=== PATIENT | male | born 1970 | race Caucasian/White ===

== ENCOUNTER 2024-12-11 14:47 | Emergency (ER) | payer BC, SELFPAY ==
[2024-12-11 15:07] VITALS: BP 151/87; PULSE 80; RESP 18; TEMP 36.4; O2SAT 99
--- NOTE | 2024-12-11 15:22 | CRLHL7_ITS ---
For Patients: As a result of the Century Cures Act, medical imaging exams and procedure reports are released immediately into your electronic medical record. You may view this report before your referring provider. If you have questions, please contact your health care provider. INDICATION: Right upper extremity pain and swelling. TECHNIQUE: Ultrasound venous duplex upper right extremity. Compression venous exam was performed using smith-scale, color Doppler, and spectral Doppler imaging. COMPARISON: None. FINDINGS: Deep veins: The visualized right internal jugular, subclavian, brachial, and axillary veins are fully compressible, demonstrate normal color flow, and normal response to mechanical augmentation. The Duplex Doppler waveforms are normal in appearance. Superficial veins: Limited evaluation of the right mid cephalic vein due to caliber of the vessel. Within the limitations, the visualized cephalic, brachial and basilic veins are unremarkable. Soft tissue: Heterogeneous lobulated lesion is identified in the area of pain in the anterior forearm. The lesion measures approximately 2.7 x 1.4 x 4.7 centimeters. Possible small-vessel coursing through the lesion is noted. IMPRESSION: Heterogeneous lobulated lesion at the area of interest may represent a hematoma. Muscular rupture and retraction would also be a possibility. Correlate with history and physical exam. Dictated by Yuli Rodriguez MD @ 12/11/2024 8:05:28 PM (Electronically Signed)
--- NOTE | 2024-12-11 15:22 | CRLHL7_ITS ---
For Patients: As a result of the Cures Act, medical imaging exams and procedure reports are released immediately into your electronic medical record. You may view this report before your referring provider. If you have questions, please contact your health care provider. Indication: Injury Technique: Three views right wrist Comparison: None Findings/Impression: Bones: Alignment is normal. No fractures or bone lesions. Joint spaces: Unremarkable. Soft tissues: Unremarkable. Dictated by Erik Bowen MD @ 12/11/2024 3:42:51 PM (Electronically Signed)
--- NOTE | 2024-12-11 15:24 | ED.GENADULT ---
HPI - General Adult General Chief complaint: Extremity Pain/Injury, Upper Stated complaint: left wrist pain Time Seen by Provider: 12/11/24 15:15 Source: patient Mode of arrival: ambulatory Limitations: no limitations History of Present Illness HPI narrative: 54-year-old male with increased right dorsal proximal wrist pain significantly worse this morning but has been ongoing for about the past 2 and half weeks. Patient reports that he was chopping wood a few days after [place] which is not an activity that he does often. Couple of days later, he noticed some soreness and tenderness in this area of the wrist but assumed it was activity related. No redness or swelling at that time. He reports that last week, he went to open the heavy steel door when he felt a snap in the wrist and had bruising. 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 Recommended rest, ice, conservative management. He said he woke this morning with increased swelling and redness with tenderness to the area in question on the proximal dorsal wrist/distal forearm. No history of DVT or PE. Not anticoagulated. Hurts to flex the hand and wrist, no difficulty with extension abduction or adduction of the wrist. No numbness or tingling. No difficulty moving elbow, shoulder or neck. No prior history of similar symptoms. Left-side unaffected. Past medical history benign per his report. Allergy to shellfish. Only home medication is low-dose Flomax. Nonsmoker. ROS notable for the musculoskeletal symptoms as above only, otherwise denies times 12 systems. Related Data Home Medications ?Medication ?Instructions ?Recorded ?Confirmed tamsulosin 0.4 mg capsule 0.4 mg PO DAILY 12/11/24 12/11/24 Allergies Allergy/AdvReac Type Severity Reaction Status Date / Time shellfish derived Allergy Severe Hives Verified 12/11/24 15:12 [facility] Social History Smoking Status: Never smoker How often do you have a drink containing alcohol: 2-4 times a month AUDIT-C Alcohol total score: 2 Non-prescribed substance use: denies use Exam Const: Vital Signs, click to edit/add: Vital Signs - 24 hr 12/11/24 15:07 Temperature 97.6 F Pulse Rate [Pulse Oximeter] 80 Respiratory Rate 18 Blood Pressure [Le ft Upper Arm] 151/87 H Pulse Oximetry 99 Oxygen Delivery Me thod Room Air Documenting provider has reviewed patient's vital signs: yes Common normals: no apparent distress General appearance: cooperative, comfortable and well kempt HENMT: Common normals: normocephalic and moist oral mucous membranes Head and scalp: normocephalic Eye: General eye: normal appearance of both eyes Resp: Common normals: normal respiratory effort and no use of accessory muscles Effort & inspection: able to speak in complete sentences Cardio: Other: Regular rate and rhythm palpated through right radial pulse. Normal capillary refill in all fingers Extremity: Other: Left wrist and hand grossly normal with normal movement. Right elbow in all fingers with normal range of motion, no tenderness, deformity or swelling. The right wrist does have swelling and signs of bruising with what appears to be a good size subcutaneous hematoma on the proximal right dorsal wrist/distal right forearm. Mildly tender to palpation, mildly warm. Good pulses. No broken skin. Tendon seem intact with normal flexion, extension and movement of all fingers. Pain is increased with active flexion, less so with passive flexion on exam. Neuro: Common normals: moves all extremities Psych: Common normals: speech normal Appearance: well kempt Attitude: engaged Speech: normal speech Mood and affect: euthymic mood Insight: insight good Judgement: judgment good Skin: Common normals: no rashes or lesions noted General skin exam: no rashes or lesions noted Course Course ED Course: 54-year-old male with wrist pain. Differential diagnosis including gout, occult fracture, tendinitis, DVT, superficial venous thrombosis, sprain, amongst others. Because of the duration, I recommend a few basic labs to look for gout, inflammatory markers, CBC, platelet count. Venous ultrasound and x-ray recommended. Vital Signs Vital signs: Initial Vital Signs Temperature 97.6 F 12/11/24 15:07 Temperature Source Temporal Artery Scan 12/11/24 15:07 Pulse Rate 80 12/11/24 15:07 Respiratory Rate 18 12/11/24 15:07 Blood Pressure 151/87 H 12/11/24 15:07 Blood Pressure Mean 108 H 12/11/24 15:07 Blood Pressure Position Sitting 12/11/24 15:07 Pulse Oximetry 99 12/11/24 15:07 Oxygen Delivery Method Room Air 12/11/24 15:07 Vital Signs Temperature 97.6 F 12/11/24 15:07 Pulse Rate 80 12/11/24 15:07 Respiratory Rate 18 12/11/24 15:07 Blood Pressure 151/87 H 12/11/24 15:07 Pulse Oximetry 99 12/11/24 15:07 Oxygen Delivery Method Room Air 12/11/24 15:07 Temperature 97.6 F 12/11/24 15:07 Pulse Rate 80 12/11/24 15:07 Respiratory Rate 18 12/11/24 15:07 Blood Pressure 151/87 H 12/11/24 15:07 Pulse Oximetry 99 12/11/24 15:07 Oxygen Delivery Method Room Air 12/11/24 15:07 Medical Decision Making Lab Data Lab results reviewed: Yes I reviewed the patient's lab results Lab results narrative: Labs all reassuring. No elevation of inflammatory markers, uric acid, white count. Labs: Lab Results 12/11/24 Range/Units 15:44 WBC 6.60 (4.50-11.00) K/uL RBC 4.93 (4.30-5.90) m/uL Hgb 14.7 (13.5-17.5) gm/dL Hct 41.5 (37.0-53.0) % MCV 84 (80-100) fL MCH 30 (26-34) pg MCHC 35 (32-36) gm/dL RDW Coeff of Queenie 11.6 (11.5-15.5) % Plt Count 192 (140-440) K/uL Neut % (Auto) 62.4 (42.0-72.0) % Lymph % (Auto) 26.8 (20-44) % Benton % (Auto) 7.3 (0.0-11.0) % Eos % (Auto) 2.3 (0.0-7.0) % Baso % (Auto) 0.3 (0.0-3.0) % Neut # (Auto) 4.12 (1.7-7.0) K/uL Lymph # (Auto) 1.77 (0.90-2.90) K/uL Benton # (Auto) 0.50 (0.00-0.90) K/UL Eos # (Auto) 0.15 (0.00-0.50) K/uL Baso # (Auto) 0.02 (0.00-0.30) K/uL Abs Immat Gran (auto) 0.06 (0.00-0.30) K/uL Imm/Tot Granulo (auto) 0.9 % INR 0.95 (0.91-1.10) Sodium 138 (135-149) mmol/L Potassium 3.9 (3.6-5.1) mmol/L Chloride 106 (96-114) mmol/L Carbon Dioxide 23 (20-32) mmol/L Anion Gap 9 (7-15) mEq/L BUN 13 (7-30) mg/dL Creatinine 0.8 (0.5-1.5) mg/dL Estimated GFR 104 ml/min Glucose 89 (60-115) mg/dL Uric Acid 5.2 (2.2-8.4) mg/dL Calcium 8.9 (8.4-10.6) mg/dL C-Reactive Protein < 0.5 L (0.5-1.0) mg/dL Imaging Data Right wrist x-ray: Attestation: I have reviewed the pertinent imaging results. My impression: No fracture. Minimal soft tissue swelling. Radiologist's impression: Findings/Impression: Bones: Alignment is normal. No fractures or bone lesions. Joint spaces: Unremarkable. Soft tissues: Unremarkable. Dictated by Erik Bowen MD @ 12/11/2024 3:42:51 PM Ultrasound right upper extremity: Attestation: I have reviewed the pertinent imaging results. My impression: No evidence of DVT, soft tissue heterogenicity consistent with hematoma Note that exam correlates with hematoma. Radiologist's impression: IMPRESSION: Heterogeneous lobulated lesion at the area of interest may represent a hematoma. Muscular rupture and retraction would also be a possibility. Correlate with history and physical exam. Dictated by Yuli Rodriguez MD @ 12/11/2024 8:05:28 PM Discharge Plan Discharge Clinical Impression: Hematoma of right wrist Patient Disposition: Home, Self-Care Condition: Stable Instructions: Hematoma (ED) Additional Instructions: As we discussed, there are no signs of infection, gout, fracture or blood clot on exam today. We you do have a signs of a hematoma which is a collection of blood underneath the skin. This can be very irritating to the tendons and surrounding tissues. This most likely happen from a small ruptured vein near the surface of the skin that caused some bleeding. This probably got initially irritated with the chopping of the wood that you had and then popped and in convenient time, causing the bleeding and in flow may auguste right now. Your lab studies do not suggest that this has become infected. I think antibiotics are unlikely to be helpful. When you get inflammation in these hematomas, it does tend to take about a month resolved. I would recommend that you use an anti-inflammatory medicine like Aleve 1 pill 2 times daily for the next 2-3 weeks. It is okay to continue use of the wrist but it will be slightly tender. You will not do more long-term damage by continuing to use it. If you continue to have problems after month, I would recommend follow-up with an orthopedic provider to the more closely at the tendons and determine if any further advanced imaging or treatment is needed. Most of the time these minor injuries heal without complication and more information does not necessarily change the course of healing. Some mild numbness and tingling in the fingers can be common with this as the hematoma will press on the sensory nerves. Any difficulty moving the fingers, stroke-like symptoms or significant redness or streaking up the arm would warrant repeat evaluation. Activity Level: Activity as Tolerated Discharge Diet: Regular Prescriptions: No Action tamsulosin 0.4 mg capsule 0.4 mg PO DAILY Follow Up/Referrals: Anam Briones MD [Primary Care Provider] - Stand Alone Forms: [place] [employer] Info Instructions
--- OUTSIDE RECORDS SUMMARY | 2024-12-11 15:35 | XMS_ITS | Clinical Summary ---
Author Organization [facility] Address [place], [place] [address] Care Team Providers Care Door Tender Name Role Phone Anam Briones MD Primary Care Provider [phone] Allergies Active Allergy Reactions Criticality Noted Date Comments Shellfish Derived Hives,Itching,Rash 10/16/2017 Medications tamsulosin (FLOMAX) 0.4 mg capsuleIndicatio ns:BPH without urinary obstruction Take 1 Capsule (0.4 mg) by mouth once daily after a meal. 90 Capsule 3 06/19/2024 Active Active Problems Problem Noted Date Diagnosed Date BPH without urinary obstruction 03/24/2021 Sensorineural hearing loss, bilateral 12/08/2020 Adenomatous colon polyp 05/19/2019 Overview (03/24/2024): Colonoscopy 04/2019 polyp, repeat in 5 years Colonoscopy 02/2024 normal, repeat in 7 years Encounters Date Type Department Care Team Description 12/11/2024 2:05 PM DIRECTOR BUSINESS DEVELOPMENT Office Visit [facility] [address] [place] [address] Halie Bajwa PA Wrist Pain/problem (Right wrist pain/Started over [place] was achy had been chopping wood/Then went back to work opened a door and had shooting pain up his arm arm turned black and blue) 12/11/2024 Travel from Last 3 Months Immunizations Name Administration Dates Next Due AMB INFLUENZA, IIV4 (AGE=>6M OS) MDV (Flu Clinic Only) 08/17/2020 COVID-19 vaccine (Moderna 100mcg/0.5mL) PF, MDV 09/26/2023 Hepatitis B (Adult) 05/25/2008,01/12/2008,2006 Influenza Virus, Unspecified 08/19/2018 Influenza, IIV3 (Age 6-35 mos) 08/31/2009 Influenza, IIV3 (Age >=3 years) 08/19/20 15,08/13/2014,08/14/2013,2011,08/17/2011,09/22/2010,10/27/2003 Influenza, IIV4 (=>6mos) MDV 08/30/2021,09/01/20 19,08/16/2017 Influenza, Injectable, Mdck, Quadrivalent, W/preservative 08/20/2023,08/22/2022 Tdap 09/06/2015,06/07/2011 Zoster (Shingrix-RZV, recombinant) 08/16/2022, Family History Medical History Relation Name Comments Diabetes type II Father Cancer-prostate Maternal Grandfather Cancer-prostate Maternal Uncle No Known Problems Mother Diabetes Paternal Grandfather Relation Name Status Comments Father Maternal Grandfather Maternal Uncle Mother Paternal Grandfather Social History Tobacco Use Types Packs/Day Years Used Date Smoking Tobacco: Never Smokeless Tobacco: Never Tobacco Cessation:Counseling Given: Yes Alcohol Use Standard Drinks/Week Comments Yes 2 (1 standard drink = 0.6 oz pur e alcohol) occasionally PHQ-2 Answer Date Recorded PHQ-2 TOTAL SCORE 0 06/19/2024 Social Connections Answer Date Recorded Do you often feel lonely or isolated from those around you? 0 12/11/2024 Financial Resource Strain Answer Date R ecorded Difficulty of Paying Living Expenses 3 12/11/2024 Difficulty of Paying Living Expenses Not on file 12/11/2024 Food Insecurity Answer Date Recorded Do you worry your food will run out before you are able to buy more? 1 12/11/2024 Transportation Needs Answer Date Record ed Does lack of transportation keep you from medica l appointments? 1 12/11/2024 Does lack of transportation keep you from work, meetings or getting things that you need? 1 12/11/2024 Housing Stability Answer Date Recorded What is your housing situation today? 1 12/11/2024 Utilities Answer Date Recorded Do you have trouble paying f or utilities (for example, heat, electricity, water, phone)? 1 12/11/2024 Sex and Gender Information Value Date Recorded Sex Assigned at Not on file Legal Sex Male 5:51 AM DIRECTOR BUSINESS DEVELOPMENT Gender Identity Not on file Sexual Orientation Not on file Obstetrics History Last Filed Vital Signs Vital Sign Reading Time Taken Comments Blood Pressure 136/89 12/11/2024 1:57 PM DIRECTOR BUSINESS DEVELOPMENT Pulse 70 12/11/2024 1:57 PM DIRECTOR BUSINESS DEVELOPMENT Temperature 36.2 C (97.1 F) 03/24/2024 1:00 PM CDT Respiratory Rate 12 03/24/2024 2:05 PM CDT Oxygen Saturation 100% 12/11/2024 1: 57 PM DIRECTOR BUSINESS DEVELOPMENT Inhaled Oxygen Concentration - - Weight 96.1 kg (211 lb 14.4 oz) 12/11/2024 1:57 PM DIRECTOR BUSINESS DEVELOPMENT Height 180.7 cm (5' 11.14) 06/19/2024 9:53 AM C DT Body Mass Index 29.44 06/19/2024 9:53 AM CDT Plan of Treatment Health Maintenance Due Date Last Done Comments Pneumococcal series for age 50+ (1 of 1 - PCV) 2018 COVID-19 vaccine series ( season) 2024 09/26/2023, 09/26/2023, 06/07/2022, Additional history exists Influenza for age 50-64 07/26/2024 08/20/20 23, 08/22/2022, 08/30/2021, Additional history exists BMI (ht and wt on same day) for age 18+ 06/19/2025 06/19/2024, 02/18/2024, 07/19/2023, Additional history exists Depression screening for age 12+ 06/19/2025 06/19/2024, 07/19/2023, 07/10/2022, Additional history exists Tetanus booster 09/06/2025 09/06/2015, 06/07/2011 Lipids for age 45-75 06/19/2029 06/19/2024, 07/19/2023, 07/10/2022, Additional history exists Colonoscopy through age 75 03/24/203103/24, 03/24/2024, 03/24/2024, Additional history exists Tdap Completed 09/06/2015, 06/07/2011 Hepatitis C screening for ag e 18-79 Completed 07/10/2022 Zoster (shingles) series for age 50+ Completed 08/16/2022, 05/17/2022 HIV for age 15-65 Completed 07/19/2023 Procedures Procedure Name Priority Date/Time Associated Diagnosis Comments LIPID PANEL Routine 06/19/2024 10:33 AM CDT Screening, lipid COLONOSCOPY SCREENING Routine 03/24/2024 12:49 PM CDT History of colon polyps LC HIV-1/O/2, 4TH GENERATION Routine 07/19/2023 4:40 PM CDT Screening for HIV (human immunodeficiency virus) ANTI HCV Routine 07/10/2022 4:30 PM CDT Need for hepatitis C screening test from Last 3 Months or Most Recently Relevant to Health Maintenance Results * LIPID PANEL (06/19/2024 10:33 AM CDT) Pathologist [facility] CHOLESTEROL,TOTAL 167 100 - 199 mg/dL 06/19/2024 7:54 PM CDT [facility] Comment: Cholesterol, Total Reference Ranges Desirable <200 mg/dL Borderline 200-239 mg/dL High >=240 mg/dL TRIGLYCERIDES 83 <150 mg/dL 06/19/2024 7:54 PM CDT [facility] HDL CHOLESTEROL 56 >40 mg/dL 7:54 PM CDT [facility] NON-HDL CHOLESTEROL 111 <145 mg/dl 06/19/2024 7:54 PM CDT [facility] CHOL/HDL RATIO 2.98 <4.50 06/19/2024 7:54 PM CDT [facility] LDL CHOLESTEROL 94 <=130 mg/dL 06/19/2024 7:54 PM CDT [facility] VLDL CHOLESTEROL 17 <=30 mg/dL 06/19/2024 7:54 PM CDT [facility] PROVIDER ORDERED STATUS RANDOM 06/19/2024 7:54 PM CDT [facility] Blood BLOOD SPECIMEN / Unknown Venipuncture / Unknown 06/19/2024 10:33 AM CDT 06/19/2024 10:35 AM CDT us Anam Briones MD CHEMISTRY Final Resu lt [facility] [address] [address], * COLONOSCOPY (03/24/2024 12:53 PM CDT) 03/24/2024 12:5 3 PM CDT Narrative Transcriptions Jacoby Tracy MD - 03/24/2024 1:50 PM CDT Patient Name: Florentin Medina Procedure Date: 03/24/2024 Gender: Male Date of : 1970 Admit Type: Outpatient Procedure: Colonoscopy Proceduralist: Jacoby Tracy MD , Rayna Shelton (Nurse), Elizabeth Mistry (Nurse) Referring MD: Anam Briones Indications/Pre-Op Diagnosis: High risk colon cancer surveillance:Personal history of adenoma less than 10 mm in size, Last colonoscopy: April 2019 Medications: Fentanyl 100 micrograms IV, Midazolam 4 mgIV, The level of sedation administered wasmoderate Procedure Description: The patient had risks, benefits and alternatives explained to andgave informed consent. The patient had a stable cardiopulmonary status and judged an adequate candidate for conscious sedation. The endoscope -[id number] was passed through the anus andadvanced to the cecum, identified by appendiceal orifice and ileocecal valve.The colonoscopy was performed without difficulty. The patient toleratedthe procedure well. The quality of the bowel preparation was good. The ileocecal valve, appendiceal orifice, and rectum were photographed. Complications: No immediate complications. Estimated Blood Loss & Specimen: Estimated blood loss: none. Specimen collected - None Findings: The perianal and digital rectal examinations were normal. The entire examined colon appeared normal. Impressions/Post-Op Diagnosis: - The entire examined colon is normal. - No specimens collected. Recommendation: - Patient has a contact number available for emergencies. The signsand symptoms of potential delayed complications were discussed with the patient. Return to normal activities tomorrow. Written discharge instructions were provided to the patient. - Resume previous diet. - Continue present medications. - Repeat colonoscopy in 7 years for surveillance. Moderate Sedation: A time out was performed before the procedure. Moderate (conscious) sedation was administered by the endoscopy nurse and supervised bythe endoscopist. The following parameters were monitored: oxygensaturation, heart rate, blood pressure, EKG, CO2, respiratory rate, adequacy of pulmonary ventilation and reponse to care. Please refer to the patient's medical record flowsheets and nursing notes for moderate sedation details. Total physician intraservice time was 14 minutes. Jacoby Tracy MD 03/24/2024 1:50:31 PM This report has been signed electronically. Note Initiated On: 03/24/2024 12:53 PM Procedure Code(s): --- Professional --- 06040, Colonoscopy, flexible; diagnostic, including collection of specimen(s) bybrushing or washing, when performed (separateprocedure) Diagnosis Code(s): --- Professional --- Z86.010, Personal history of colonicpolyps CPT copyright 2022 [employer]. All rights reserved. The codes documented in this report are preliminary and upon second baker reviewmay be revised to meet current compliance requirements. Scope In: 1:29:57 PM Scope Withdrawal Time 0 hours 6 minutes 16 seconds Scope Out: 1:41:30 PM Jacoby Tracy MD PROCEDURE ORD Final Res ult * LC HIV-1/O/2, 4TH GENERATION (07/19/2023 4:40 PM CDT) HIV Scr 4th Gen Non Reactive Non Reactive 07/24/2023 10:06 PM CDT [facility] Comment: HIV Negative HIV-1/HIV-2 antibodies and HIV-1 p24 antigen were NOT detected. There is no laboratory evidence of HIV infection. Blood BLOOD SPECIMEN / Unknown Venipuncture / Unknown 07/19/2023 4:40 PM CDT 07/19/2023 4:41 PM CDT Narrative [facility] - 07/24/2023 10:06 PM CDT Performed at: [address] [place] [address] [id number] Operations Mgr: Javi Lo MD, Phone: [phone] us Anam Briones MD LABORATORY Final Resu lt [facility]) [address] [place] [id number], * ANTI HCV (07/10/2022 4:30 PM CDT) Pathologist [facility] HEPATITIS C ANTIBODY Non-React alan Non-React alan 07/11/2022 6:03 PM CDT [facility] Comment:Antibodies to HCV no t detected; does not exclude the possibility of exposure to HCV. Blood BLOOD SPECIMEN / Unknown Venipuncture / Unknown 07/10/2022 4:30 PM CDT 07/10/2022 4:31 PM CDT Anam Briones MD SEND OUTS [facility] [address] [place] [address], [place] from Last 3 Months or Most Recently Relevant to Health Maintenance Insurance [phone] (Work) [address] [facility] [id number] [facility] [employer] Advance Directives * Full Code (Latest Code Status on File) Date Activated Date Inactivated Comments 10/18/2015 8:14 AM 10/19/2015 2:29 AM Care Teams Door Tender Relationship Specialty Start Date End Date Anam Briones MD [address] [place] [address] PCP - General Family Practice 10/17/15
[2024-12-11 15:53] LABS: Basophils Absolute Auto 0.02 K/uL (0.00-0.30); Basophils Percent Auto 0.3 % (0.0-3.0); Eosinophils Absolute Auto 0.15 K/uL (0.00-0.50); Eosinophils Percent Auto 2.3 % (0.0-7.0); Hematocrit 41.5 % (37.0-53.0); Hemoglobin* 14.7 gm/dL (13.5-17.5); Immature Granulocytes Abs Auto 0.06 K/uL (0.00-0.30); Immature Granulocytes Pct Auto 0.9 %; Lymphocytes Absolute Auto 1.77 K/uL (0.90-2.90); Lymphocytes Percent Auto 26.8 % (20-44); Mean Corpuscular HGB Conc 35 gm/dL (32-36); Mean Corpuscular Hemoglobin 30 pg (26-34); Mean Corpuscular Volume 84 fL (80-100); Monocytes Percent Auto 7.3 % (0.0-11.0); Neutrophils Absolute Auto 4.12 K/uL (1.7-7.0); Neutrophils Percent Auto 62.4 % (42.0-72.0); Platelet Count* 192 K/uL (140-440); RDW Coefficient of Variation % 11.6 % (11.5-15.5); Red Blood Count 4.93 m/uL (4.30-5.90)
[2024-12-11 16:02] LABS: Chloride* 106 mmol/L (96-114); Sodium* 138 mmol/L (135-149)
[2024-12-11 16:03] LABS: Potassium* 3.9 mmol/L (3.6-5.1); Slide Review Reflex No
[2024-12-11 16:05] LABS: Creatinine* 0.8 mg/dL (0.5-1.5); Estimated Glomerular Filt Rate 104 ml/min
[2024-12-11 16:06] LABS: Anion Gap 9 mEq/L (7-15); Blood Urea Nitrogen* 13 mg/dL (7-30); Calcium* 8.9 mg/dL (8.4-10.6); Carbon Dioxide* 23 mmol/L (20-32); Glucose* 89 mg/dL (60-115)
[2024-12-11 16:07] LABS: INR 0.95 (0.91-1.10); Prothrombin Time 13.3 Seconds; Uric Acid* 5.2 mg/dL (2.2-8.4)
[2024-12-11 16:10] LABS: C Reactive Protein* < 0.5 mg/dL (0.5-1.0)
== END 2024-12-11 18:26 | disposition home or self-care (01) ==
PROVIDERS: Emergency Provider Family Medicine; PCP Surgery
DX: S60.212A Contusion of left wrist, initial encounter (principal); X50.1XXA Overexertion from prolonged static or awkward postures, initial encounter
CPT/HCPCS: 36415; 73110; 80048; 84550; 85025; 85610; 86140; 93971; 99283